=== PATIENT | male | born 1960 | race Caucasian/White ===

== ENCOUNTER 2019-03-28 20:26 | Emergency (ER) | payer BC ==
[~2019-03-28] VITALS: Ht 177.8 cm; Wt 84.1 kg
[~2019-03-28 20:26] MED LIST: AMOXICILLIN 8751 TAB PO; NO HOME MEDICATIONS
[2019-03-28 20:36] VITALS: BP 146/103; TEMP 98
[2019-03-28 21:30] VITALS: PULSE 82
== END 2019-03-28 21:31 | disposition home or self-care (01) ==
LOC: COL.ER 20:26
DX: S01.81XA Laceration without foreign body of other part of head, initial encounter (principal); W22.8XXA Striking against or struck by other objects, initial encounter; Y92.009 Unspecified place in unspecified non-institutional (private) residence as the place of occurrence of the external cause

== ENCOUNTER 2019-04-02 00:36 | Emergency (ER) | payer BC ==
[2019-04-02 00:38] VITALS: BP 144/95; PULSE 67; TEMP 97.1
== END 2019-04-02 00:48 | disposition home or self-care (01) ==
LOC: COL.ER 00:36
DX: S01.91XD Laceration without foreign body of unspecified part of head, subsequent encounter (principal); X58.XXXD Exposure to other specified factors, subsequent encounter

== ENCOUNTER → 2022-04-29 | Outpatient (CLI) | payer BC | LOC: COL.RAD 04-03 15:00 | DX: I77.810 Thoracic aortic ectasia (principal) | CPT/HCPCS: Q9967 ==

== ENCOUNTER → 2024-05-31 | Outpatient (CLI) | payer BC ==
[~2024-05-31] MED LIST changes: +Iohexol 300 - 100 ML VIAL IV ONE; +NS 100 ML IV SCH
== END ==
LOC: COL.RAD 08:22
DX: I77.810 Thoracic aortic ectasia (principal)
CPT/HCPCS: Q9967